=== PATIENT | male | born 1980 | race Caucasian/White ===

== ENCOUNTER 2017-07-08 13:30 | Observation (INO) | payer OTHER ==
[~2017-07-08 13:30] MED LIST: ISOVUE-370 76%-LOCM 1 ML ONE
[2017-07-08 14:07] LABS: #Basophils 0.1 thou/uL (0.0-0.2); #Eosinphils 0.1 thou/uL (0.0-0.7); #Lymphocytes 1.7 thou/uL (1.20-3.40); #Monocytes 0.4 thou/uL (0.11-0.59); #Neutrophils 4.2 thou/uL (1.40-6.50); %Basophils 1.2 % (0.0-1.0); %Lymphocytes 26.1 % (21.0-51.0); %Monocytes 5.6 % (0.0-10.0); Hemoglobin 15.6 g/dL (14.0-18.0); Mean Corpuscular HGB CONC 34.7 g/dL (32.0-36.0); Mean Corpuscular Hemoglobin 30.4 pg (27.0-31.0); Mean Corpuscular Volume 87.5 fl (80.0-94.0); Mean Platelet Volume 7.8 fL (7.4-10.4); Platelet Count 264 thou/uL (130-400); RBC Distribution Width 11.2 % (11.5-14.5); Red Blood Cell (RBC) Count 5.15 mill/uL (4.70-6.10); White Blood Cell (WBC) Count 6.4 thou/uL (4.8-10.8)
[2017-07-08 14:27] LABS: Albumin 4.4 g/dL (3.5-5.0); Calcium 9.6 mg/dL (7.8-10.44); Chloride 104 mmol/L (98-107); Potassium 3.5 mmol/L (3.5-5.1); Sodium 138 mmol/L (136-145)
[2017-07-08 14:28] LABS: Globulin 2.9 g/dL (2.4-3.5); Glucose 127 mg/dL (70-105); Protein, Total 7.3 g/dL (6.0-8.3)
[2017-07-08 14:30] LABS: Bilirubin, Total 0.8 mg/dL (0.2-1.2)
[2017-07-08 14:31] LABS: Alkaline Phosphatase 48 U/L (40-150); Calc. Creatinine Clearance 0 mL/min (70-130); Estimated GFR-MDRD 72; Troponin I Less than 0.010 ng/mL (< 0.028)
[2017-07-08 14:32] LABS: BUN (Urea Nitrogen) 15 mg/dL (8.9-20.6)
[2017-07-08 14:33] LABS: AST (SGOT) 14 U/L (5-34)
--- NOTE | 2017-07-08 14:33 | RAD ---
CHEST 2 VIEWS: Date: 07/08/17 HISTORY: Chest pain. FINDINGS: No comparison. Cardiac silhouette is unremarkable. Pulmonary vasculature within normal limits. No lobar consolidatio n, pneumothorax, or pleural fluid. monitor technician leads overlie the chest. IMPRESSION: No active cardiopulmonary abnormalities are demonstrated. POS: [facility]
[2017-07-08 14:34] LABS: ALT (SGPT) 11 U/L (8-55)
[2017-07-08 14:38] LABS: Anion Gap 12 mmol/L (10-20); Carbon Dioxide 26 mmol/L (22-29)
[2017-07-08] MEDS ORDERED: Nitroglycerin 0.4 MG TAB (25 Tab Bottle) ONE (14:53)
--- NOTE | 2017-07-08 16:26 | CT ---
CT ARTERIOGRAM CHEST WITH IV CONTRAST AND 3D MIP IMAGING 07/08/17 HISTORY: Dyspnea. Chest pain. FINDINGS: there is good contrast opacification of the pulmonary arteries and thoracic aorta with normal branchi ng of the great vessels. No pleural fluid, pneumothorax or mediastinal adenopathy. Minimal basilar at electasis. IMPRESSION: No CT evidence of pulmonary embolus. POS: [facility]
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
[2017-07-08] MEDS ORDERED: Acetaminophen 325 MG TAB PO PRN ×2 (17:28→17:41)
[2017-07-08] MEDS ORDERED: Ondansetron ODT 4 MG TAB PO PRN (17:41)
[2017-07-08 17:50] VITALS: BMI 22.6
[2017-07-08 17:53] LABS: Troponin I Less than 0.010 ng/mL (< 0.028)
[2017-07-08 17:59] LABS: Magnesium 2.4 mg/dL (1.6-2.6)
[2017-07-08 18:00] LABS: Phosphorus 1.8 mg/dL (2.3-4.7)
[2017-07-08] MEDS ORDERED: Lidocaine 2% Viscous Solution 20 ML, Aluminum & Magnesium Hydroxide 30 ML, Donnatal Eli... SSW SCH (18:00)
[2017-07-08 20:57] LABS: Troponin I Less than 0.010 ng/mL (< 0.028)
--- NOTE | 2017-07-09 06:33 | PDOC.FM ---
- Subjective Subjective: Patient had great night. He states the GI cocktail resolved all of his pain. He has not had a recurrence. He denies chest pain, sob, n/v/d, fevers, chills, or cough. No other complaints. - Objective Vital Signs & Weight: Vital Signs (12 hours) Temp Pulse Resp BP Pulse Ox 07/09/17 02:51 86 12 118/70 96 07/08/17 19:50 98.1 F 67 16 119/71 95 Weight Weight 75.523 kg I&O: 07/07/17 07/08/17 07/09/17 06:59 06:59 06:59 Intake Total 1430 Balance 1430 Result Diagrams: 07/08/17 13:50 07/08/17 13:50 <Joao Mckeon - Last Filed: 07/09/17 07:25> - Objective Vital Signs & Weight: Vital Signs (12 hours) Temp Pulse Resp BP BP Pulse Ox 07/09/17 08:00 98.2 F 69 12 07/09/17 07:23 98.2 F 69 12 112/63 95 07/09/17 02:51 86 12 118/70 96 Weight Weight 75.523 kg I&O: 07/08/17 07/09/17 07/10/17 06:59 06:59 06:59 Intake Total 1430 Balance 1430 Result Diagrams: 07/08/17 13:50 07/08/17 13:50 <Rk West - Last Filed: 07/09/17 10:34> Phys Exam - Physical Examination HEENT: PERRLA, moist MMs Neck: no JVD Respiratory: no wheezing, clear to auscultation bilateral Cardiovascular: RRR, no significant murmur Gastrointestinal: soft, non-tender, no distention, positive bowel sounds Musculoskeletal: no edema, pulses present Neurological: non-focal, normal sensation, moves all 4 limbs Lymphatic: no nodes Psychiatric: normal affect, A&O x 3 Skin: no rash <Joao Mckeon - Last Filed: 07/09/17 07:25> Dx/Plan (1) Atypical chest pain Code(s): R07.89 - OTHER CHEST PAIN Status: Acute (2) GERD (gastroesophageal reflux disease) Code(s): K21.9 - GASTRO-ESOPHAGEAL REFLUX DISEASE WITHOUT ESOPHAGITIS Status: Acute (3) Tachycardia Code(s): R00.0 - TACHYCARDIA, UNSPECIFIED Status: Acute - Plan Plan: 1. Atypical Chest pain - Very unlikely cardiac etiology - Will trend troponins - Will hold on stress at this time - Likely GERD, will be ready for discharge this AM 2. GERD - Longstanding history and not on therapy - GI cocktail resolved symptoms - Protonix 3. Tachycardia - resolved Disposition: Stable, Will ready for discharge. <Joao Mckeon - Last Filed: 07/09/17 07:25> (1) Atypical chest pain Code(s): R07.89 - OTHER CHEST PAIN Status: Acute (2) GERD (gastroesophageal reflux disease) Code(s): K21.9 - GASTRO-ESOPHAGEAL REFLUX DISEASE WITHOUT ESOPHAGITIS Status: Acute (3) Tachycardia Code(s): R00.0 - TACHYCARDIA, UNSPECIFIED Status: Acute <Rk West - Last Filed: 07/09/17 10:34> Attending Addendum - Attending Addendum Date/Time: 07/09/17 1033 I personally evaluated the patient and discussed the management with Dr. Mckeon. I agree with the History, Examination, Assessment and Plan documented above with any addition or exceptions noted below. Patient with negative rule out based on telemetry monitoring and enzymes. His symptoms resolved completely with GI cocktail. He has been started on Protonix and will be discharged with follow up at our outpatient clinic. <Rk West - Last Filed: 07/09/17 10:34>
[2017-07-09 08:09] VITALS: BP 112/63; TEMP 98.2
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
== END 2017-07-09 11:15 | disposition home or self-care (01) ==
LOC: ERS 13:30 → 2SW 17:35
PROVIDERS: ADMIT Student in an Organized Health Care Education/Training Program; ATTEND Student in an Organized Health Care Education/Training Program
DX: R07.89 Other chest pain (principal); K21.9 Gastro-esophageal reflux disease without esophagitis; R00.0 Tachycardia, unspecified; Z88.1 Allergy status to other antibiotic agents
CPT/HCPCS: 36415; 71046; 71275; 80053; 80061; 83735; 84100; 84443; 84484; 85025; 85379; 93005; 93010; 96360; 96361; G0378

== ENCOUNTER 2019-11-16 08:20 | Outpatient (CLI) | payer OTHER ==
[2019-11-16] MEDS ORDERED: Iopamidol-370 76% 500 ML 1 ML ONE (09:57)
--- NOTE | 2019-11-16 11:32 | CT ---
CT OF THE ABDOMEN AND PELVIS WITH IV AND ENTERIC CONTRAST: Date: 11/16/2019 INDICATION: 39-year-old male with chronic left upper quadrant abdominal pain that has been reoccurring for many m onths. CONTRAST: 70 mL Isovue 370 was utilized for this examination. COMPARISON: Complete abdomen ultrasound dated 11/02/2019. TECHNIQUE: Multiple CT images were obtained of the abdomen and pelvis after the administration of enteric and IV contrast. Axial, coronal, and sagittal reformatted images in 5 mm slice thicknesses were obtained. FINDINGS: The lung bases are clear. No pleural effusion is identified. The lower aspects of the visualized hear t appear within normal limits. Lower aspects of the mediastinum reveal no adenopathy. The visualized distal esophagus and thoracic aorta are normal appearing. No focal hepatic lesion is evident. The gallbladder appears within normal limits. The pancreas appear s within normal limits. The spleen measures 8.3 cm in length. There are two small splenules seen ante rior to the anterior splenic margin. The adrenal glands are normal appearing. No focal renal lesion is evident. There are mild vascular calcifications involving the posterior abdominal aorta without evidence of an eurysmal dilatation. There appears to be good opacification within the celiac, SMA, and MARK branch of the abdominal aorta. Portal vein appears to opacify normally. The splenic vein appears to opacify no rmally. The stomach reveals no definite intraluminal mass or wall thickening. The small bowel appears within normal limits without evidence of distention or wall thickening. There are a few shotty appearing lym ph nodes within the right lower quadrant mesentery. The largest measures 6.7 mm on image 56 of series 2. There is a normal appendix in the right lower quadrant. The visualized terminal ileum has a nathan l appearance. There are a few scattered diverticula involving the descending colon and sigmoid colon without eviden ce of active diverticulitis. No free fluid is identified within the pelvis. The partially decompressed bladder appears normal. There are small phleboliths within the lower pelvis. The rectum and perirectal soft tissues appear no rmal. No enlarged lymph nodes are evident within the pelvis. Osseous structures: No acute osseous abnormality is evident. No suspicious osteolytic or osteoblasti c lesions identified. A small bone island is seen within the anterior femoral neck of the right proxi mal femur. Additional small bone island is seen within the right ischial tuberosity. There is a small, fat-containing umbilical hernia. IMPRESSION: No CT explanation for the patient's chronic left upper quadrant abdominal pain. POS: [facility]
== END 2019-11-16 08:21 | disposition home or self-care (01) ==
LOC: BICCT 08:20
PROVIDERS: ATTEND Internal Medicine
DX: R10.12 Left upper quadrant pain (principal)
CPT/HCPCS: 74177; Q9967

== ENCOUNTER 2021-06-24 06:39 | Emergency (ER) | payer OTHER ==
[2021-06-24] MEDS ORDERED: Milk Of Magnesia 30 ML UDCUP ONE (07:15)
[2021-06-24] MEDS ORDERED: Lidocaine 1% PF 5 ML VIAL ONE (07:15)
[2021-06-24] MEDS ORDERED: Lidocaine Viscous Sol 2% 15 ml UD Cup ONE (07:17)
[2021-06-24] MEDS ORDERED: Mag-Al 1200 mg/1200 mg/30 ML UDCUP ONE (07:19)
[2021-06-24 08:17] LABS: Bilirubin Negative (Negative); Blood, Urine Negative (Negative); Clarity Clear (Clear); Glucose, Urine (Dipstick) Normal (Negative); Ketone, Urine Negative (Negative); Leukocyte Negative Leu/uL (Negative); Nitrite Negative (Negative); Protein, Urine (Dipstick) Negative (Neg-Trace); Specific Gravity, Urine 1.006 (1.002-1.036); Urobilinogen Normal mg/dL (Less than 2); pH, Urine 6.5 (5.0-9.0)
[2021-06-24 09:16] LABS: #Basophils 0.1 thou/uL (0.0-0.2); #Eosinphils 0.1 thou/uL (0.0-0.7); #Lymphocytes 1.5 thou/uL (1.20-3.40); #Monocytes 0.7 thou/uL (0.11-0.59); #Neutrophils 5.9 thou/uL (1.40-6.50); %Basophils 0.6 % (0.0-1.0); %Eosinophils 1.6 % (0.0-10.0); %Lymphocytes 18.6 % (21.0-51.0); %Monocytes 7.8 % (0.0-10.0); %Neutrophils 71.4 % (42.0-75.0); Hemoglobin 15.4 g/dL (14.0-18.0); Mean Corpuscular HGB CONC 33.2 g/dL (32.0-36.0); Mean Corpuscular Hemoglobin 30.4 pg (27.0-31.0); Mean Corpuscular Volume 91.5 fL (78.0-98.0); Mean Platelet Volume 7.9 fL (7.4-10.4); Platelet Count 243 thou/uL (130-400); RBC Distribution Width 11.4 % (11.5-14.5); Red Blood Cell (RBC) Count 5.07 mill/uL (4.70-6.10); White Blood Cell (WBC) Count 8.3 thou/uL (4.8-10.8)
[2021-06-24 09:31] LABS: ALT (SGPT) 14 U/L (8-55); AST (SGOT) 16 U/L (5-34); Albumin 4.3 g/dL (3.5-5.0); Alkaline Phosphatase 47 U/L (40-110); Anion Gap 11 mmol/L (10-20); BUN (Urea Nitrogen) 16 mg/dL (8.9-20.6); Bilirubin, Total 0.5 mg/dL (0.2-1.2); Calc. Creatinine Clearance 0 mL/min (70-130); Calcium 9.2 mg/dL (7.8-10.44); Carbon Dioxide 27 mmol/L (22-29); Chloride 107 mmol/L (98-107); Globulin 2.9 g/dL (2.4-3.5); Glucose 111 mg/dL (70-105); Lipase 18 U/L (8-78); Potassium 4.2 mmol/L (3.5-5.1); Protein, Total 7.2 g/dL (6.0-8.3); Sodium 141 mmol/L (136-145)
== END 2021-06-24 10:10 | disposition home or self-care (01) ==
LOC: ERS 06:39
DX: R07.1 Chest pain on breathing (principal); K21.9 Gastro-esophageal reflux disease without esophagitis
CPT/HCPCS: 36415; 71045; 80053; 81003; 83690; 84484; 85025; 93005

== ENCOUNTER 2022-10-29 12:00 | Outpatient (CLI) | payer OTHER | END 2022-10-29 12:01 | disposition home or self-care (01) | LOC: RAD 12:00 | PROVIDERS: ATTEND Family Medicine | DX: R07.81 Pleurodynia (principal); R07.89 Other chest pain; R14.2 Eructation; K21.9 Gastro-esophageal reflux disease without esophagitis | CPT/HCPCS: 71046 ==

== ENCOUNTER 2022-11-12 08:22 | Outpatient (CLI) | payer OTHER | END 2022-11-12 08:23 | disposition home or self-care (01) | LOC: RAD 08:22 | PROVIDERS: ATTEND Family Medicine | DX: K21.9 Gastro-esophageal reflux disease without esophagitis (principal); K44.9 Diaphragmatic hernia without obstruction or gangrene | CPT/HCPCS: 74246 ==